=== PATIENT | male | born 1985 | race Caucasian/White ===

== ENCOUNTER 2019-11-16 17:54 | Emergency (ER) | payer OTHER ==
[~2019-11-16] VITALS: Ht 198.1 cm; Wt 115.9 kg
[2019-11-16] MEDS ORDERED: CLOT30CR24 TOP (20:23)
[2019-11-16] MEDS ORDERED: IMIQ1CRE9 TOP (20:23)
[2019-11-16 21:07] VITALS: BP 138/85
== END 2019-11-16 21:09 | disposition home or self-care (01) ==
LOC: ER 17:55
DX: L98.9 Disorder of the skin and subcutaneous tissue, unspecified (principal); L30.4 Erythema intertrigo; Z79.899 Other long term (current) drug therapy
CPT/HCPCS: 99283